=== PATIENT | female | born 1945 | race Hispanic/Latino ===

== ENCOUNTER 2018-06-11 10:11 | Inpatient (IN) | payer MEDICARE ==
[2018-06-11 14:18] VITALS: BMI 28.1
[2018-06-11] MEDS ORDERED: Oxycodone/Acetaminophen 5/325 mg Tab PO PRN (14:23)
[2018-06-11] MEDS ORDERED: levoFLOXacin 500 MG TAB PO ONE (15:59)
[2018-06-11] MEDS ORDERED: Enoxaparin 30 mg Syringe SC ONE (16:15)
--- NOTE | 2018-06-11 16:51 | RAD ---
Date of service: 06/11/2018 HISTORY: pre-op COMPARISON: No prior. FINDINGS: LUNGS: No active pulmonary disease. PLEURA: No significant pleural effusion identified, no pneumothorax apparent. CARDIOVASCULAR: No discernible aortic atherosclerotic calcification present. Sternotomy wires present.. No pulmonary vascular congestion. OSSEOUS STRUCTURES: No significant abnormalities. VISUALIZED UPPER ABDOMEN: Normal. OTHER FINDINGS: None. IMPRESSION: No active disease.
[2018-06-11] MEDS: diltiaZEM 240 mg/24 Hours CD Cap PO SCH (17:28)
[2018-06-11] MEDS: Insulin Reg-MEDIUM-Coverage SC SCH ×2 (17:34→23:33)
[2018-06-11] MEDS: Sodium Chloride 0.9% 1,000 ML IV SCH ×2 (17:34→23:35)
[2018-06-11 17:55] LABS: HEMOGLOBIN 9.9 g/dL (12.0-16.0); MEAN CELL VOLUME 93.6 fl (80.0-105.0); MEAN CORPUSCULAR HEMOGLOBIN 30.4 pg (25.0-35.0); MEAN CORPUSCULAR HGB CONC 32.5 g/dl (31.0-37.0); RBC 3.26 10^6/uL (3.5-6.1); RED CELL DISTRIBUTION WIDTH 12.7 % (11.5-14.5); URINE BILIRUBIN NEGATIVE (NEGATIVE); URINE BLOOD NEGATIVE (NEGATIVE); URINE GLUCOSE (UA) 100 mg/dL (NEGATIVE); URINE LEUKOCYTE ESTERASE SMALL Leu/uL (NEGATIVE); URINE PROTEIN NEGATIVE mg/dL (<30 mg/dL); URINE UROBILINOGEN 0.2 E.U./dL (<1 E.U./dL); WHITE BLOOD COUNT 12.5 10^3/uL (4.5-11.0)
[2018-06-11 17:57] LABS: ALB/GLOB RATIO 1.1 (1.1-1.8); ALBUMIN 3.9 g/dL (3.0-4.8); ALT/SGPT 23 U/L (7-56); AST/SGOT 20 U/L (14-36); BLOOD UREA NITROGEN 25 mg/dL (7-21); CALCIUM 9.3 mg/dL (8.4-10.5); GFR NON-AFRICAN AMERICAN 55
[2018-06-11 18:03] LABS: URINE APPEARANCE CLEAR (CLEAR); URINE COLOR LIGHT YELLOW (YELLOW)
[2018-06-11] MEDS: Morphine 2 mg/ml ISec IVP PRN ×2 (18:11→22:01)
[2018-06-11 18:14] LABS: URINE BACTERIA FEW (NEG); URINE RBC 0 - 2 /hpf (0-2)
--- NOTE | 2018-06-11 23:56 | HP ---
DATE OF EXAM: 06/11/2018 CHIEF COMPLAINT: Mechanical fall at home. HISTORY OF PRESENT ILLNESS: This is a 72-year-old woman I have known for many years since 1985, who is living in her daughter's house in [facility]. She got up to go to the bathroom wearing her long pants, maria del rosario, tripped on the leg of the pants and fell sustaining a fracture to her right hip. She was initially in the emergency room at a local hospital, but the patient and family felt very uncomfortable there as a result of far away from home and insisted on coming to her hometown and hospital where her creative engagement director, metal control coordinator, and orthopedist know her well. They traveled by ambulance and arrived at [facility] to be admitted to the [facility] floor. I have already spoken to the physicians in the emergency room at [facility]. Her labs were reviewed, her x-ray was discussed, and EKG was reported unremarkable to make the transition in care smooth. Patient was admitted, seen by me this Tuesday, late afternoon, as well as by orthopedist and orders written. PAST MEDICAL HISTORY: Significant for hypertension since 1995, diabetes since 1998, hyperlipidemia since 2009. Negative for tuberculosis, asthma, seizures, gout, emphysema, TIA, CVA, ASCVD, myocardial infarction, or cancers of any type. She has a long-standing history of aortic stenosis, resulting in aortic valve replacement with bovine valve and 4 coronary bypasses in 11/2017. Prior to that, she had a hip fracture on the left, hip replacement after the fracture by Dr. Abdi in 05/2011; fracture of the left shoulder in 2009; PCTA and stent placement in 03/2010; and melanoma of 0.2-mm thickness removed from the upper back in 2011. ALLERGIES: SHE HAS NO KNOWN ALLERGIES TO MEDICATIONS. SOCIAL HISTORY: She quite smoking in 1989. Does not drink alcohol. She only has 1 cup of coffee per day. She never had a colonoscopy nor mammography and which she refused them both at this point. She sees her eye doctor regularly and is followed by Cardiology on a regular basis. In fact, she just saw Dr. Meadows last week. She does not get or want the flu vaccine or pneumonia vaccine until this year when she received the flu vaccine only 2 months ago. She has no sibs. She is since 2006, with 3 daughters, Ame, Trish, and Beena. She now exercises and walks regularly. FAMILY HISTORY: Her mother at age 85 after a fractured hip in 2011. Her father was unknown. PROBLEM LIST: From her office chart includes diabetes, coronary artery disease, hypertension, peripheral vascular disease, melanoma of the upper back, a transient period of leukocytosis from 2004 to 2009, and recent aortic valve replacement. REVIEW OF SYSTEMS: Otherwise, unremarkable on multiple points. PHYSICAL EXAMINATION GENERAL: Patient was seen in room 560, bed 2, this Tuesday afternoon, with her [address] Abdi seeing the patient and reviewing the films with me during this visit. HEAD AND NECK: Unremarkable. Conjunctivae are pink. Mucous membranes are moist. Neck is supple without masses. Thyroid is not palpable. LUNGS: Clear with good aeration, right and left. BREASTS: Not examined. HEART: Regular and not tachycardic. ABDOMEN: Soft. EXTREMITIES: Showed no edema. Weak dorsalis pedis and posterior tibial pulses are palpable. The right leg is somewhat externally rotated. LABORATORY DATA: Review of the lab shows white count of 17,000, most likely related to pain and fracture. Her sodium was low at 134. Coags were normal. Urinalysis showed few leukocyte esterase. EKG was sinus rhythm. Chest x-ray looked normal to me, and the hip x-ray on the CD reviewed shows the intertrochanteric fracture of the right hip. IMPRESSION: 1. Fracture of the right hip. 2. Status post fracture of the left hip and total hip replacement. 3. Status post aortic valve replacement in 11/2017. 4. Coronary artery disease, status post percutaneous coronary transluminal angioplasty in 2009 and coronary artery bypass graft x4 in 2018. 5. Status post melanoma of the upper back. 6. Hypertension. 7. Diabetes. 8. Peripheral vascular disease. 9. History of transient chronic leukocytosis from 2004 to 2009, with white count in the 11,000 to 14,000 range. 10. Acute urinary tract bacturia. PLAN: Case was discussed at length with Dr. Abdi. In view of the leukocyte esterase noted in the urine, we will give the patient single dose of Levaquin 500 mg p.o. In view of the low sodium, we will treat with IV normal saline at 125 mL an hour overnight. This will also correct mild dehydration and the slightly elevated BUN and urine specific gravity of 1.015. I will order incentive spirometry and SCDs as prophylaxis for DVTs and give a single dose of Lovenox 30 mg subcutaneously now. For pain, the patient says that Percocet does not work with her and makes her feel nauseous. So, we will try Tylenol for mild pain, Tylenol with Codeine for moderate pain, and IV morphine for severe pain as this worked in the emergency room in [facility] as well as before transport to [place]. Patient should be scheduled for the OR tomorrow. Labs were ordered for the morning. A portable chest x-ray was done. A Cuevas catheter will be placed in the OR. Additional hip x-ray views will be done then. I will restart her medicines including lovastatin 40 mg, diltiazem CD 240 mg, metformin 500 mg 2 pills twice a day, olmesartan HCTZ 40/12.5, but here in the hospital, we will skip the HCTZ and only give losartan 50 once a day. I will resume the glipizide 10 mg b.i.d. after surgery. Use insulin coverage in the interim. Continue metoprolol tartrate 100 mg b.i.d. as the patient has a long history of sinus tachycardia and after surgery, we will resume the aspirin 81 mg daily. From medical perspective, echo will be done. She is ready for the OR tomorrow. We will take morning labs. I will request Dr. Meadows to see her, and we will follow closely postop. Patient was tremendously relieved being back in her hometown and back at [facility], obviously for multitude of reasons, not just the physicians she knows, but because her mother after distant complications weeks after hip fracture in 2011. Oz Tidwell MD MTDD
--- NOTE | 2018-06-12 03:33 | CON ---
DATE: 06/11/2018 ORTHOPEDIC CONSULTATION HISTORY OF PRESENT ILLNESS: A 72-year-old female with a history of falling at her house where she was visiting her daughter's house in [facility]. She was brought up to [facility], admitted to Dr. Oz Tidwell's service. She has intertrochanteric fracture of right hip, mildly displaced and normal chest x-ray. No history of loss of consciousness. She fractured her left hip six to seven years ago and needing a bipolar prosthesis, but this hip fracture is intertrochanteric fracture. She will require an im gabriel when medically cleared by Dr. Tidwell and Dr. Meadows and for the patient's heart issue, Dr. Meadows took care of. So we will plan on doing an open reduction and internal fixation when medically cleared, hoping to do on Tuesday afternoon around 2 o'clock if the OR could accommodate us. FINAL DIAGNOSIS: Acute intertrochanteric fracture of right hip. Wade Abdi DO MTDMendez
[2018-06-12] MEDS: Morphine 2 mg/ml ISec IVP PRN ×2 (05:39→10:49)
[2018-06-12 06:50] LABS: BASO # 0.02 K/mm3 (0.0-2.0); BASO % 0.2 % (0.0-3.0); EOS # 0.3 (0.0-0.7); EOS % 2.8 % (1.5-5.0); GRAN # 6.97 (1.4-6.5); GRAN % 74.8 % (50.0-68.0); HEMOGLOBIN 9.7 g/dL (12.0-16.0); LYMPH # 1.6 (1.2-3.4); MEAN CORPUSCULAR HEMOGLOBIN 30.3 pg (25.0-35.0); MEAN CORPUSCULAR HGB CONC 31.9 g/dl (31.0-37.0); MEAN PLATELET VOLUME 9.4 fl (7.0-11.0); MONO # 0.5 (0.1-0.6); MONO % 5.2 % (1.0-6.0); RBC 3.2 10^6/uL (3.5-6.1); RED CELL DISTRIBUTION WIDTH 12.8 % (11.5-14.5); WHITE BLOOD COUNT 9.3 10^3/uL (4.5-11.0)
[2018-06-12 07:11] LABS: BLOOD UREA NITROGEN 19 mg/dL (7-21); CALCIUM 8.8 mg/dL (8.4-10.5); GFR NON-AFRICAN AMERICAN 55
[2018-06-12] MEDS: Sodium Chloride 0.9% 1,000 ML IV SCH (08:08)
[2018-06-12] MEDS: Insulin Reg-MEDIUM-Coverage SC SCH ×4 (08:08→21:17)
--- NOTE | 2018-06-12 08:59 | CON ---
DATE: 06/12/2018 CONSULTATION: Preop, status post mechanical fall with right hip fracture. HISTORY OF PRESENT ILLNESS: This is a 72-year-old woman known to our practice, who suffered a mechanical fall yesterday and a fractured right hip. She was seen in a [facility] initially with transfer to [facility] for treatment. Surgery is planned for later today. There is no chest pain, shortness of breath, orthopnea, PND, syncope, presyncope, lightheadedness, dizziness, vertigo, palpitations, edema, claudication. No fever, chills, cough, sputum production, hemoptysis. No abdominal pain, nausea, vomiting, diarrhea, constipation, melena. PAST MEDICAL HISTORY: Notable for coronary artery disease and aortic stenosis. She underwent coronary bypass surgery with aortic valve replacement in November of this year. She has a history of remote coronary interventions, hypertension, left total hip replacement, fractured left shoulder, a melanoma removed from her back, PAD, and she is a former remote smoker. There is no history of myocardial infarction, congestive heart failure, arrhythmia, stroke, TIA, diabetes or gout. MEDICATIONS AT THE TIME OF ADMISSION: Include aspirin, diltiazem, glipizide, metoprolol, Benicar HCT and metformin. ALLERGIES: THERE ARE NO MEDICATION ALLERGIES REPORTED. SOCIAL HISTORY: She is a former remote smoker. She does not drink alcohol. She lives at home and with her daughters. She was ambulatory. FAMILY HISTORY: Not notable for early coronary artery disease. REVIEW OF SYSTEMS: Ten-point review of systems otherwise unremarkable except as noted above. PHYSICAL EXAMINATION: GENERAL: She is a well-developed woman lying in bed on 5R, in no acute distress. VITAL SIGNS: Unremarkable. Pulse 96, afebrile, 135/60, respirations 18, O2 sat 96%. HEENT: Exam reveals no neck vein distention, thyromegaly, carotid bruit. Mucous membranes moist. Conjunctivae pink. NECK: Supple. LUNGS: Lung bangura clear. HEART: Revealed normal first and second heart sounds. There is a soft systolic murmur in the aortic space and along the left sternal border. ABDOMEN: Soft. Bowel sounds present. No mass, organomegaly, tenderness, rebound, guarding. No CVA tenderness. No palpable abdominal aortic aneurysm. EXTREMITIES: Exam revealed no cyanosis, clubbing or edema. NEUROLOGICAL: Awake, alert and oriented. PSYCHIATRIC: Normal as to mood and affect. LABORATORY AND IMAGING: A chest x-ray revealed no active disease. An EKG is ordered this morning and is pending. White count 12,500, repeat 9300; hemoglobin 9.7; hematocrit 30.4; platelet count normal. Electrolytes, BUN, creatinine and blood sugar normal this morning. LFTs unremarkable. A urinalysis is noted. IMPRESSION: Susan Pham is a 72-year-old woman who suffered a mechanical fall at home, fractured her right hip and is preop for orthopedic surgery. She has a history of coronary artery disease, aortic stenosis and aortic valve replacement with coronary bypass surgery in November of this year. She has recovered well from that and has been involved with cardiac rehab. There is also a history of hypertension and remote cigarette smoking. She should be considered a mildly increased cardiac risk. She should get her metoprolol, Cardizem, losartan doses this morning preop. I will check an EKG. She is on Colace, aspirin, metformin, glipizide, Levaquin Lipitor, Lovenox, morphine p.r.n., and she is getting IV fluids. I will follow along with you postoperatively, make additional recommendations based on her clinical course. Miguel Ángel Arce MD MTDD
[2018-06-12] MEDS: diltiaZEM 240 mg/24 Hours CD Cap PO SCH (09:16)
[2018-06-12] MEDS ORDERED: Lidocaine PF 2% (5 ml) Inj (For Cardiac Arrhy) ONE (14:07)
[2018-06-12] MEDS ORDERED: Succinylcholine 200 mg/10 ml Inj IV ONE (14:07)
[2018-06-12] MEDS ORDERED: Rocuronium 10 mg/ml (5 ml) ONE (14:07)
[2018-06-12] MEDS ORDERED: CeFAZolin 1 gm in NS 100ml IVPB ONE (14:25)
--- NOTE | 2018-06-12 14:31 | CARD ---
APPROVED REPORT Date of service: 06/12/2018 EKG Measurement Heart [id number] <Conclusion> Normal sinus rhythm Normal ECG
[2018-06-12] MEDS ORDERED: Vancomycin 1 g Inj ONE (15:15)
[2018-06-12] MEDS ORDERED: Bupivacaine 0.5% 50 ML IJ ONE ×2 (15:21→15:33)
[2018-06-12] MEDS ORDERED: Glycopyrrolate 0.2 mg/ml (2ml vial) ONE (15:23)
[2018-06-12] MEDS ORDERED: Neostigmine Methylsulfate 3mg/3ml Syringe IV ONE (15:25)
[2018-06-12] MEDS ORDERED: HYDROmorphone 0.5 mg/0.5 ml ISec IVP PRN (16:09)
[2018-06-12] MEDS ORDERED: Lactated Ringer's 1,000 ML IV SCH (16:15)
[2018-06-12] MEDS: HYDROmorphone 0.5 mg/0.5 ml ISec SC PRN (18:44)
[2018-06-12 18:57] LABS: BASO # 0.02 K/mm3 (0.0-2.0); BASO % 0.1 % (0.0-3.0); EOS # 0.1 (0.0-0.7); EOS % 0.3 % (1.5-5.0); GRAN # 15.48 (1.4-6.5); GRAN % 87.9 % (50.0-68.0); HEMOGLOBIN 9.7 g/dL (12.0-16.0); LYMPH # 0.9 (1.2-3.4); LYMPH % 5.1 % (22.0-35.0); MEAN CELL VOLUME 97.5 fl (80.0-105.0); MEAN CORPUSCULAR HEMOGLOBIN 30.5 pg (25.0-35.0); MEAN CORPUSCULAR HGB CONC 31.3 g/dl (31.0-37.0); MEAN PLATELET VOLUME 9.4 fl (7.0-11.0); MONO # 1.2 (0.1-0.6); MONO % 6.6 % (1.0-6.0); RBC 3.18 10^6/uL (3.5-6.1); RED CELL DISTRIBUTION WIDTH 12.8 % (11.5-14.5); WHITE BLOOD COUNT 17.6 10^3/uL (4.5-11.0)
[2018-06-13] MEDS: HYDROmorphone 0.5 mg/0.5 ml ISec SC PRN ×3 (04:35→18:08)
[2018-06-13 06:58] LABS: HEMOGLOBIN 8.1 g/dL (12.0-16.0); MEAN CELL VOLUME 95.5 fl (80.0-105.0); MEAN CORPUSCULAR HEMOGLOBIN 30.7 pg (25.0-35.0); MEAN CORPUSCULAR HGB CONC 32.1 g/dl (31.0-37.0); MEAN PLATELET VOLUME 9.2 fl (7.0-11.0); RBC 2.64 10^6/uL (3.5-6.1); RED CELL DISTRIBUTION WIDTH 12.8 % (11.5-14.5); WHITE BLOOD COUNT 10.3 10^3/uL (4.5-11.0)
[2018-06-13 07:05] LABS: CALCIUM 8.4 mg/dL (8.4-10.5)
--- NOTE | 2018-06-13 07:51 | OP ---
PROCEDURE DATE: 06/12/2018 The patient is a 72-year-old female. PREOPERATIVE DIAGNOSIS: Displaced intertrochanteric fracture, right hip. POSTOPERATIVE DIAGNOSIS: Displaced intertrochanteric fracture, right hip. PROCEDURE: Open reduction and internal fixation with a Biomet peritrochanteric nail (PTN), lag screw of 90 mm long, a nail of 11 mm wide x 170 mm long locked distally with a 28 mm cortical screw. ANESTHESIA: General endotracheal tube. DESCRIPTION OF PROCEDURE: Summary as follows. The patient was taken to the OR. Right hip prepped and draped in a sterile fashion on the fracture table. Gentle traction was used to see where we could reduce the fracture 80%. Then with the skin prepped and draped, we made an incision 3 cm proximal to greater trochanter, entered the greater trochanter with a threaded-tip guidewire to open the fascia and then overreamed it once it was in good position with a 60 mm cannulated reamer. Because the canal was less than 9 mm long, we had ream to allow us put an 11 mm gabriel in by the sequential reaming, which took 12.5 mm of the shaft mainly at the isthmus. Once that was done, we inserted the peritrochanteric gabriel that was 170 mm long, locked it proximally with a second incision to lock it into the femoral head and neck with appropriate lag screw under 27 degrees that was 90 mm long and 11 mm wide. The fracture was compressed and locked distally with a third device and made a smaller incision of 1 cm to allow us to put in the cortical screw that was 26 mm long. The three wounds were irrigated in normal saline and closed in layers. We put powdered vancomycin in the deep part of the wounds. Wound was closed with 0 Vicryl deep layer, 2-0 subcutaneous tissue, and skin with stainless steel georges. X-rays showed good position of the fracture and the gabriel and the instruments and the patient left the recovery room in good condition. Wade Abdi DO
[2018-06-13] MEDS ORDERED: Magnesium Sulfate 2 gm/50 ml 2 GM/50 ML BAG IVPB ONE ×2 (08:35→09:40)
[2018-06-13] MEDS: Insulin Reg-MEDIUM-Coverage SC SCH ×4 (09:18→21:56)
--- NOTE | 2018-06-13 10:24 | RAD ---
Date of service: 06/12/2018 PROCEDURE: Fluoroscopy up to 1 hr HISTORY: O.R.I.F. RT. HIP FX. COMPARISON: TECHNIQUE: 78.7 sec of fluoro time. Cumulative dose 4.42 mGy. Two images were submitted FINDINGS: There is a compression screw and gabriel in the right hip. No complicating factors IMPRESSION: As above
[2018-06-13] MEDS: diltiaZEM 240 mg/24 Hours CD Cap PO SCH (10:31)
--- NOTE | 2018-06-13 12:10 | PN ---
DATE: 06/13/2018 LOCATION: Room 560, bed 2. SUBJECTIVE: The patient underwent a peritrochanteric rodding of her right hip yesterday, did well and was discharged. She did have to have reaming of the femoral canal because the isthmus area of the femur was too narrow to allow us to pass the intermedullary gabriel. So, we had to do extensive reaming reflected in low hemoglobin of 8.1, hematocrit 25; she started out at 9.9 and 30. PLAN: I am going to give her two units of packed cells to cover the blood loss from the reaming, so she could undergo therapy because she does want to go home. So, we do not want her fainting at home. By the way, she is doing well. I will repeat the blood work tomorrow after the blood transfusion. Wade Abdi DO
[2018-06-13] MEDS ORDERED: Morphine 2 mg/ml ISec IVP STA (20:29)
[2018-06-14 07:47] LABS: ALB/GLOB RATIO 0.9 (1.1-1.8); ALBUMIN 2.9 g/dL (3.0-4.8); CALCIUM 8.4 mg/dL (8.4-10.5)
[2018-06-14] MEDS: Insulin Reg-MEDIUM-Coverage SC SCH ×4 (08:03→22:06)
[2018-06-14 08:50] LABS: BASO # 0.01 K/mm3 (0.0-2.0); BASO % 0.1 % (0.0-3.0); EOS # 0.3 (0.0-0.7); EOS % 2.5 % (1.5-5.0); GRAN # 8.85 (1.4-6.5); GRAN % 80.1 % (50.0-68.0); HEMOGLOBIN 9.8 g/dL (12.0-16.0); LYMPH # 1.2 (1.2-3.4); LYMPH % 10.9 % (22.0-35.0); MEAN CORPUSCULAR HEMOGLOBIN 29.5 pg (25.0-35.0); MEAN CORPUSCULAR HGB CONC 32.2 g/dl (31.0-37.0); MEAN PLATELET VOLUME 9.5 fl (7.0-11.0); MONO # 0.7 (0.1-0.6); MONO % 6.4 % (1.0-6.0); RBC 3.32 10^6/uL (3.5-6.1); RED CELL DISTRIBUTION WIDTH 14.6 % (11.5-14.5); WHITE BLOOD COUNT 11.1 10^3/uL (4.5-11.0)
[2018-06-14 08:51] LABS: MEAN CELL VOLUME 91.6 fl (80.0-105.0)
[2018-06-14] MEDS: Enoxaparin 40 mg Syringe SC SCH (09:17)
[2018-06-14] MEDS: HYDROmorphone 0.5 mg/0.5 ml ISec SC PRN ×3 (09:18→22:30)
[2018-06-14] MEDS: diltiaZEM 240 mg/24 Hours CD Cap PO SCH (09:19)
--- NOTE | 2018-06-14 09:49 | PN ---
DATE: 06/14/2018 SUBJECTIVE: This 72-year-old female underwent ORIF of her right hip three days ago on 06/12/2018 and underwent peritrochanteric gabriel and required two units blood yesterday. She was up, out of bed yesterday and we are trying to get her into subacute rehab, but she does not want to, so next best thing will be TCU floor, to help get some therapy before she goes home, possibly as she lives alone. Today's date is 06/14/2018. The wound is drying, she is ready to go for physical therapy here and hopefully we could get her to transitional care unit for eight days to allow me to get the sutures off before she goes home, so she could avoid the rehab, but she would need to get home physical therapy in the home, visiting nurse and the homemaker, but if she goes to TCU that would help quite a bit. Otherwise, the patient is doing well. The labs are not back yet. . Wade Abdi DO MTDMendez
--- NOTE | 2018-06-14 10:14 | PN ---
DATE: 06/13/2018 SUBJECTIVE: The patient was seen this Tuesday evening in room 560, bed 2 with her daughter at the bedside. She is out of bed in the chair, awake, alert, somewhat uncomfortable, only 24 hours now post hip fracture repair. PHYSICAL EXAMINATION LUNGS: Good aeration, right and left. HEART: Regular, borderline tachycardic at 100. EXTREMITIES: No edema. No suspicion for DVT. PLAN: Physical therapy. The patient is refusing subacute rehab at a distant facility. We will ask for transfer to our TCU for additional physical therapy post hip repair. If this not possible, the other alternative then would be home with visiting nurse. Oz Tidwell MD MTDD
--- NOTE | 2018-06-14 14:41 | PN ---
DATE: 06/14/2018 SUBJECTIVE: The patient is seen lying in bed on 5R. She underwent successful hip surgery. Plans for placement are being evaluated. She denies any chest pain or dyspnea. CURRENT MEDICATIONS: Include Cardizem CD 240 mg daily, Codeine, Cozaar 50 mg daily, Dilaudid, Ecotrin, Glucophage 500 mg b.i.d., Glucotrol 10 mg b.i.d., Lipitor 20 mg daily, metoprolol 100 mg b.i.d., and Lovenox. OBJECTIVE: GENERAL: She is a middle-aged woman, who appears comfortable at the present time. VITAL SIGNS: Blood pressure is 102/50 with a pulse of 90 and regular, respirations are 14, temperature 99.8. HEENT: No JVD. CHEST: Few scattered rhonchi heard. HEART: Soft systolic murmur at the left sternal border. ABDOMEN: Soft, nontender with normoactive bowel sounds. EXTREMITIES: Trace edema. DIAGNOSTIC DATA: White count 11.1, hemoglobin and hematocrit 9.8 and 30.4 with a platelet count of 174,000, this is after two units of packed cells. Potassium 4.1, BUN and creatinine 17 and 1.2, and glucose 171. IMPRESSION: 1. Status post recent fall with resultant hip fracture, status post surgical repair. 2. Coronary artery disease and aortic stenosis, status post bypass surgery and aortic valve replacement. 3. History of hypertension. 4. History of diabetes. RECOMMENDATIONS: Her current cardiac medications should continue. DVT prophylaxis should continue as well. From cardiac standpoint, she is stable for discharge once the arrangements have been made. The patient's followup will be arranged. Wili Meadows MD
[2018-06-15] MEDS: HYDROmorphone 0.5 mg/0.5 ml ISec SC PRN ×2 (05:00→13:35)
[2018-06-15 07:08] LABS: HEMOGLOBIN 9.3 g/dL (12.0-16.0); MEAN CORPUSCULAR HEMOGLOBIN 29.7 pg (25.0-35.0); MEAN CORPUSCULAR HGB CONC 32.3 g/dl (31.0-37.0); MEAN PLATELET VOLUME 9.7 fl (7.0-11.0); RBC 3.13 10^6/uL (3.5-6.1); RED CELL DISTRIBUTION WIDTH 14.2 % (11.5-14.5)
[2018-06-15] MEDS: Insulin Reg-MEDIUM-Coverage SC SCH ×3 (07:38→16:52)
[2018-06-15 08:15] VITALS: RESP 20; TEMP 99.5; O2SAT 94
[2018-06-15] MEDS: diltiaZEM 240 mg/24 Hours CD Cap PO SCH (10:38)
[2018-06-15] MEDS: Enoxaparin 40 mg Syringe SC SCH (12:02)
[2018-06-15 17:01] VITALS: BP 111/53; PULSE 97
--- NOTE | 2018-06-21 13:12 | PQF ---
PROVIDER RESPONSE TEXT: Post op low hemogobin from reaming the femur for the surgery to put the gabriel in the shaft of the femur . REVIEWER QUERY TEXT: Clarification of Clinical Diagnostic Findings Please clarify documentation or clinical relevance for the clinical / diagnostic findings or whether those are insignificant or unable to be further specified. The patient's Clinical Indicators include: Your note of 06/13 indicates low hemoglobin after reaming, with patient receiving two units of packed red cells. Please clarify the specific diagnosis, if any, which pertains to these findings. Thank you . Query created by: Mandie Ac on 06/16/2018 1:39 PM Electronically signed by: Wade Abdi DO 06/21/2018 1:10 PM
== END 2018-06-15 19:33 | DRG 481 ==
LOC: 5RNO 13:48
PROVIDERS: ADMIT Internal Medicine; ATTEND Internal Medicine
PROC: 0QS604Z Reposition Right Upper Femur with Internal Fixation Device, Open Approach (ICD-10-PCS; principal; 2018-06-12 14:30)
PROC: 30233N1 Transfusion of Nonautologous Red Blood Cells into Peripheral Vein, Percutaneous Approach (ICD-10-PCS; 2018-06-13)
DX: S72.141A Displaced intertrochanteric fracture of right femur, initial encounter for closed fracture (principal); N39.0 Urinary tract infection, site not specified; I10 Essential (primary) hypertension; E11.51 Type 2 diabetes mellitus with diabetic peripheral angiopathy without gangrene; I25.10 Atherosclerotic heart disease of native coronary artery without angina pectoris; W01.0XXA Fall on same level from slipping, tripping and stumbling without subsequent striking against object, initial encounter; E86.0 Dehydration; Z85.820 Personal history of malignant melanoma of skin; Z87.891 Personal history of nicotine dependence; Z95.3 Presence of xenogenic heart valve; I35.0 Nonrheumatic aortic (valve) stenosis; Y92.009 Unspecified place in unspecified non-institutional (private) residence as the place of occurrence of the external cause; E78.5 Hyperlipidemia, unspecified; Z95.1 Presence of aortocoronary bypass graft; Z96.642 Presence of left artificial hip joint

== ENCOUNTER 2018-06-15 19:33 | Inpatient (IN) | payer OTHER, MEDICARE ==
[2018-06-15 20:21] VITALS: BMI 28.6
[2018-06-15] MEDS ORDERED: HYDROmorphone 0.5 mg/0.5 ml ISec SC PRN (20:23)
[2018-06-15] MEDS: Insulin Reg-MEDIUM-Coverage SC SCH (21:48)
[2018-06-15] MEDS: HYDROmorphone 0.5 mg/0.5 ml ISec IVP PRN (22:23)
[2018-06-16] MEDS: Enoxaparin 40 mg Syringe SC SCH (05:00)
[2018-06-16] MEDS: Insulin Reg-MEDIUM-Coverage SC SCH ×3 (06:47→17:47)
[2018-06-16] MEDS: HYDROmorphone 0.5 mg/0.5 ml ISec IVP PRN ×3 (08:14→19:03)
[2018-06-16] MEDS: diltiaZEM 240 mg/24 Hours CD Cap PO SCH (09:42)
--- NOTE | 2018-06-16 13:14 | PN ---
DATE: 06/16/2018 SUBJECTIVE: The patient is a 72-year-old female with a history of hypertension, diabetes, hyperlipidemia, aortic stenosis status post aortic valve replacement, status post coronary artery bypass grafting in 11/2017 who suffered a hip fracture and she is status post left hip fracture in 2010 and suffered a right hip fracture for which she was admitted to the [facility] on 06/15/2018. She underwent pinning of the fracture by Dr. Abdi and did well. The patient is now admitted to the Transitional Care Unit for physical therapy as she refused transfer to a subacute care facility and yet was not quite ready for discharge to home. When seen today, she is awake, alert and oriented. Her daughter is at bedside. She is in good spirits. She feels physical therapy is improving slowly; however, she still cannot get out of bed to her bedside commode on her own. She is complaining of constipation today and some citrate of magnesia will be ordered for her. We will continue to follow the patient closely, and she will be reevaluated in the morning. Wade Tidwell MD
--- NOTE | 2018-06-16 13:26 | HP ---
DATE OF EXAM: 06/16/2018 HISTORY OF PRESENT ILLNESS: The patient is a 72-year-old female who was admitted to the [facility] on 06/11/2018 after a trip and fall at home resulting in a fracture of the right hip. The patient underwent surgery with Dr. Abdi and pinning of the hip went well. Postoperatively, the patient did not feel comfortable at a subacute care facility and therefore insisted on either discharge to home or to the Transitional Care Unit of [facility]. Therefore, arrangements were made and the patient is to be transferred to the Transitional Care Unit. PAST MEDICAL HISTORY: The patient has a past medical history positive for hypertension, [id number] diabetes mellitus and hyperlipidemia. She is known to have aortic stenosis, status post aortic valve replacement with a bovine valve and coronary artery bypass grafting in 11/2017. She also suffered a fracture of the left shoulder in 2009, recent history of melanoma which was excised from the upper back in 2011. ALLERGIES: SHE HAS NO KNOWN MEDICAL ALLERGIES. PHYSICAL EXAMINATION: Head, eyes, ears, nose and throat: Unremarkable. NECK: Supple with no lymphadenopathy. No goiter. LUNGS: Clear to auscultation and percussion. Thoracotomy scar is well healed. ABDOMEN: Soft and nontender with no organomegaly. EXTREMITIES: Free of cyanosis, clubbing or edema. NEUROLOGICAL: The patient is awake, alert and oriented with no focal neurological signs. So the patient is admitted to the Transitional Care Unit status post right hip fracture for physical therapy. We are continuing with her medications which include Cardizem 240 mg daily, codeine sulfate 30 mg every 6 hours as needed for moderate pain, Colace 100 mg twice a day, Cozaar 50 mg daily, Dilaudid 0.5 mg intravenously as needed for severe pain, Ecotrin 81 mg, Glucophage 500 mg twice a day, glipizide 10 mg twice a day, atorvastatin 20 mg daily, Lopressor 100 mg twice a day. She is also receiving Lovenox 40 mg subcutaneously. We will continue to follow the patient closely on the Transitional Care Unit. Wade Tidwell MD
[2018-06-16] MEDS ORDERED: Magnesium Citrate Oral SOL (300 ml) PO ONE (14:32)
--- NOTE | 2018-06-16 19:55 | CON ---
DATE: 06/16/2018 ORTHOPEDIC CONSULTATION LOCATION: Room 304, bed 1. HISTORY OF PRESENT ILLNESS: Patient is a 72-year-old female underwent ORIF of her right intertrochanteric hip fracture on 06/12/2018 and was transferred to the TCU on 06/15/2018. She is doing well. Her wound is dry. She is just starting on muscle exercises and increase strengthening exercises. to ambulate with a walker, weight bearing as tolerated and minimize the stairs. We will change the dressing next week as it is dry now and encourage ambulation with walk and strengthening exercises of the right lower extremity. X-ray shows good positioning of the fracture in the hardware. We will probably get another x-ray before she goes home and when the sutures are out. FINAL DIAGNOSIS: Postoperative right hip fracture intertrochanteric, 06/12/2018. Wade Abid DO PIOTR
[2018-06-17] MEDS: Insulin Reg-MEDIUM-Coverage SC SCH ×4 (02:29→17:25)
[2018-06-17] MEDS: HYDROmorphone 0.5 mg/0.5 ml ISec IVP PRN ×4 (03:35→23:16)
[2018-06-17] MEDS: Enoxaparin 40 mg Syringe SC SCH (05:25)
[2018-06-17] MEDS: diltiaZEM 240 mg/24 Hours CD Cap PO SCH (10:37)
--- NOTE | 2018-06-17 15:32 | PN ---
DAILY PROGRESS NOTE DATE: 06/17/2018 SUBJECTIVE: The patient is a 72-year-old female with a history of hypertension, diabetes, hyperlipidemia, aortic stenosis status post aortic valve replacement, status post coronary artery bypass grafting who suffered a hip fracture in 2010 and unfortunately suffered a right hip fracture for which she was admitted to [facility] on June 15, 2018. She underwent pinning of the fracture with Dr. Abdi and did well. She refused transfer to a subacute care facility and arrangements were made for her to be admitted to the Transitional Care for physical therapy. When seen today, the patient is awake, alert and oriented. She is sitting up at bedside. She had a great relief and good response to the citrate of magnesia she received yesterday for constipation. Her spirits are good. She is well motivated with physical therapy and states that she is slowly coming along. Physical exam is unremarkable. She is afebrile. Blood pressure is 117/60 and heart rate is 98 beats per minute. We are continuing to follow the patient closely. She will be reevaluated in the morning and physical therapy is encouraged. Wade Tidwell MD
[2018-06-18] MEDS: Insulin Reg-MEDIUM-Coverage SC SCH ×5 (01:25→22:10)
[2018-06-18] MEDS: Enoxaparin 40 mg Syringe SC SCH (05:40)
[2018-06-18] MEDS: diltiaZEM 240 mg/24 Hours CD Cap PO SCH (10:15)
[2018-06-18] MEDS: HYDROmorphone 0.5 mg/0.5 ml ISec IVP PRN ×2 (11:02→18:28)
--- NOTE | 2018-06-18 15:31 | RAD ---
PROCEDURE: Right Hip and pelvis radiographs. HISTORY: right leg pain COMPARISON: None. FINDINGS: BONES: Compression screw and gabriel in the right hip. There are no complicating factors. There is separation of the lesser trochanter JOINTS: Normal. SOFT TISSUES: Normal. OTHER FINDINGS: None. IMPRESSION: Compression screw and gabriel in the right hip. There are no complicating factors. There is separation of the lesser trochanter
--- NOTE | 2018-06-18 15:34 | RAD ---
Date of service: 06/18/2018 PROCEDURE: Right femur two views HISTORY: right hip pain/ s/p Right hip ORIF COMPARISON: TECHNIQUE: Three views FINDINGS: The distal femur is unremarkable IMPRESSION: Compression screw and gabriel in the right hip. There are no complicating factors. There is separation of the lesser trochanter
--- NOTE | 2018-06-18 17:27 | PN ---
DATE: 06/18/2018 DAILY PROGRESS NOTE The patient is a 72-year-old female with a history of hypertension, diabetes, hyperlipidemia, aortic stenosis, status post aortic valve replacement, status post coronary artery bypass grafting who suffered a left hip fracture in 2010 which was replaced at that time. Unfortunately, she suffered a right hip fracture which caused this admission to [facility] on 06/15/2018. She underwent pinning of the fracture with Dr. Abdi and did well. Postoperatively, the patient refused subacute rehab facility and, therefore, was transferred to the transitional care unit. On the transitional care unit, the patient is doing very well. As per PT notes, the patient ambulated 17 feet with a rolling walker. She also performed toe-touch weightbearing exercises. When seen today, she is sitting in a chair at bedside. Her legs are elevated. The patient noted her right leg to be swollen today up to the thigh. Dr. Abdi had already been contacted and ordered venous Dopplers to be done to rule out deep vein thrombosis. So, we are awaiting the patient to be called for venous Doppler. Otherwise, her physical exam is unchanged and we will continue to follow the patient closely. Wade Tidwell MD
[2018-06-19] MEDS: Enoxaparin 40 mg Syringe SC SCH (05:23)
[2018-06-19] MEDS: Insulin Reg-MEDIUM-Coverage SC SCH ×4 (06:53→21:49)
--- NOTE | 2018-06-19 09:24 | US ---
HISTORY: Leg pain and swelling. Evaluate for DVT PHYSICIAN(S): Bola Ba MD. TECHNIQUE: Duplex sonography and color-flow Doppler with graded compression were used to evaluate the deep venous systems of both lower extremities. FINDINGS: The visualized deep venous systems of both lower extremities are sonographically normal and compressible. Normal wave forms and augmentation are seen. There is no sonographic evidence for deep venous thrombosis in the visualized segments of both lower extremities. IMPRESSION: No sonographic evidence for deep venous thrombosis in the visualized segments of both lower extremities.
[2018-06-19] MEDS: diltiaZEM 240 mg/24 Hours CD Cap PO SCH (10:02)
[2018-06-19] MEDS: HYDROmorphone 0.5 mg/0.5 ml ISec IVP PRN ×2 (10:02→16:05)
[2018-06-20] MEDS: HYDROmorphone 0.5 mg/0.5 ml ISec IVP PRN ×3 (04:14→19:33)
[2018-06-20] MEDS: Insulin Reg-MEDIUM-Coverage SC SCH ×4 (06:46→22:38)
[2018-06-20] MEDS: Enoxaparin 40 mg Syringe SC SCH (06:49)
--- NOTE | 2018-06-20 07:21 | PROCN ---
DATE: 06/19/2018 The patient was at surgery. She is a 72-year-old female, presently in 304, bed 1, TCU floor for therapy for rehabilitation for ORIF of her right hip, which was done on 06/12/2018. The dressing was changed; this was irritating her. We put a new dressing and the wound is dry, which were 3 small incisions on the right proximal thigh. We put in a new dressing and continue to do ambulation with walker, weightbearing to tolerance, avoiding stairs. Hopefully, she will go home in 2 weeks after surgery. So, we can take the sutures out before she goes home 06/26/2018; otherwise, she is doing well. There is no undue swelling or tenderness. No signs of infection. No deep vein thrombosis. Wade Abdi DO
[2018-06-20] MEDS: diltiaZEM 240 mg/24 Hours CD Cap PO SCH (10:17)
[2018-06-20] MEDS ORDERED: Magnesium Hydroxide Susp 30 ml UD PO ONE (16:08)
[2018-06-21] MEDS: Enoxaparin 40 mg Syringe SC SCH (05:23)
[2018-06-21] MEDS: Insulin Reg-MEDIUM-Coverage SC SCH ×4 (06:48→22:00)
[2018-06-21] MEDS: HYDROmorphone 0.5 mg/0.5 ml ISec IVP PRN ×2 (08:50→22:43)
[2018-06-21] MEDS: diltiaZEM 240 mg/24 Hours CD Cap PO SCH (10:36)
--- NOTE | 2018-06-21 11:26 | PN ---
DATE: 06/21/2018 SUBJECTIVE: The patient is seen sitting in chair on Transitional Care Unit. She is slowly improving in terms of ambulation. She denies any chest pain or dyspnea. A lower extremity venous duplex was performed yesterday showed no evidence of DVT. CURRENT MEDICATIONS: Include Cardizem CD 240 mg daily, Cozaar 50 mg daily, Ecotrin, Glucophage, Glucotrol, insulin coverage, Lipitor, metoprolol 100 mg twice daily and Lovenox. OBJECTIVE: GENERAL: She is a middle-aged woman who appears comfortable at rest. VITAL SIGNS: Blood pressure is 146/80 with pulse of 90 and regular, respirations are 16. She is afebrile. HEENT: No JVD. CHEST: Few scattered rhonchi. HEART: Soft systolic murmur is present left sternal border. ABDOMEN: Soft, nontender, normoactive bowel sounds. EXTREMITIES: Unchanged. DIAGNOSTIC DATA: No recent blood work reported. IMPRESSION: 1. Status post recent fall with hip fracture and subsequent surgical repair, progressing well. 2. Coronary artery disease and aortic stenosis status post aortic valve replacement, bypass surgery, stable at this time. 3. History of hypertension and diabetes. RECOMMENDATIONS: Current medical regimen should continue at this time. From a cardiac standpoint, she is stable for discharge home once medically cleared. Continued outpatient followup will be arranged. Wili Meadows MD
--- NOTE | 2018-06-21 15:38 | RAD ---
Date of service: 06/21/2018 PROCEDURE: Right Knee Radiographs. HISTORY: swelling COMPARISON: None. FINDINGS: BONES: Bone alignment is normal. There is no acute displaced fracture or bone destruction. JOINTS: Normal. No osteoarthritis. JOINT EFFUSION: There is a small suprapatellar joint. OTHER FINDINGS: None. IMPRESSION: No acute fracture or dislocation. Small suprapatellar joint effusion.
[2018-06-22] MEDS: Enoxaparin 40 mg Syringe SC SCH (05:27)
[2018-06-22] MEDS: Insulin Reg-MEDIUM-Coverage SC SCH ×4 (06:37→22:20)
[2018-06-22] MEDS: diltiaZEM 240 mg/24 Hours CD Cap PO SCH (09:03)
[2018-06-22] MEDS: Naproxen 275 mg Tab PO PRN ×2 (15:55→23:10)
[2018-06-22 16:33] VITALS: TEMP 97.6
--- NOTE | 2018-06-23 01:21 | PROCN ---
DATE: 06/22/2018 ORTHOPEDIC PROGRESS REPORT LOCATION: Susan Pham, 72-year-old female, in room 304, bed 1. She is postop from right hip fracture pinning on 06/12/2018. The wound is very dry. All sutures were removed today and put in a clean dressing. She is going to have orders tomorrow. I will see her in the office in about six to eight weeks for x-ray and to evaluate the right hip fracture and make sure , and she does have mild osteoarthritis of the right knee. We will address that when the hip is healing better. Wade Abdi DO
[2018-06-23 06:17] VITALS: RESP 20; O2SAT 95
[2018-06-23] MEDS: Insulin Reg-MEDIUM-Coverage SC SCH ×2 (06:37→12:26)
[2018-06-23] MEDS: diltiaZEM 240 mg/24 Hours CD Cap PO SCH (09:53)
[2018-06-23 09:56] VITALS: BP 96/72; PULSE 93
== END 2018-06-23 14:57 | disposition home or self-care (01) | DRG 561 ==
LOC: TRCU 19:33
PROVIDERS: ADMIT Internal Medicine; ATTEND Internal Medicine
PROC: F07Z9ZZ Gait Training/Functional Ambulation Treatment (ICD-10-PCS; principal; 2018-06-16)
PROC: F08Z4ZZ Home Management Treatment (ICD-10-PCS; 2018-06-16)
DX: S72.141D Displaced intertrochanteric fracture of right femur, subsequent encounter for closed fracture with routine healing (principal); Z98.890 Other specified postprocedural states; E11.9 Type 2 diabetes mellitus without complications; I25.10 Atherosclerotic heart disease of native coronary artery without angina pectoris; I10 Essential (primary) hypertension; E78.5 Hyperlipidemia, unspecified; K59.00 Constipation, unspecified; W01.0XXD Fall on same level from slipping, tripping and stumbling without subsequent striking against object, subsequent encounter; Z85.820 Personal history of malignant melanoma of skin; Z95.3 Presence of xenogenic heart valve; Z95.1 Presence of aortocoronary bypass graft